=== PATIENT | male | born 1970 | race American Indian/Alaskan Native ===

== ENCOUNTER 2021-06-29 10:53 | Day surgery (SDC) | payer BC ==
[~2021-06-29 10:53] MED LIST: ceFAZolin/Water 2 GM/20 ML 2 GM/20 ML SYRINGE IV NR
[2021-06-29] MEDS ORDERED: LACTATED RINGERS 1,000 ML ONE ×2 (10:57→14:46)
[2021-06-29 11:42] LABS: Hematocrit 39.8 % (30.3-42.9); Hemoglobin 13.3 gm/dl (10.1-14.3); Mean Corpuscular HGB Conc 33 % (30-34); Mean Corpuscular Volume 93 fl (79-97); Platelet Count 205 K/mm3 (140-440); Red Blood Count 4.27 M/mm3 (3.65-5.03); Red Cell Distribution Width 13.7 % (13.2-15.2)
--- NOTE | 2021-06-29 11:52 | Anesthesia Consultation ---
Anesthesia Consult and Med Hx - Airway Anesthetic Teeth Evaluation: Good ROM Head & Neck: Adequate Mental/Hyoid Distance: Adequate Mallampati Class: Class I Intubation Access Assessment: Good - Pulmonary Exam CTA: Yes - Cardiac Exam Cardiac Exam: RRR - Pre-Operative Health Status ASA Pre-Surgery Classification: ASA3 Proposed Anesthetic Plan: General - Pulmonary Hx Smoking: No Hx Asthma: No Hx Respiratory Symptoms: No Hx Sleep Apnea: Yes (No CPAP) - Cardiovascular System Hx Hypertension: Yes Hx Heart Attack/AMI: No - Central Nervous System Hx Neuromuscular Disorder: No Hx Psychiatric Problems: No - Gastrointestinal Hx Gastroesophageal Reflux Disease: No - Endocrine Hx Renal Disease: No Hx Liver Disease: No Hx Non-Insulin Dependent Diabetes: No - Hematic Hx Anemia: No - Other Systems Hx Alcohol Use: Yes (OCCASIONALLY) Hx Substance Use: No Hx Cancer: No Hx Obesity: Yes (BMI 38) - Additional Comments Anesthesia Medical History Comments: BMI 38
--- NOTE | 2021-06-29 11:53 | Anesthesia Day of Surgery ---
Anesthesia Day of Surgery - Day of Surgery Patient Examined: Yes Patient H&P Reviewed: Yes Patient is NPO: Yes
[2021-06-29] MEDS ORDERED: ONDANSETRON 4 MG/2 ML INJ IV PRN (12:07)
[2021-06-29] MEDS ORDERED: HYDROmorphone 1 MG/1 ML INJ IV PRN ×2 (12:07)
[2021-06-29 12:08] LABS: Alanine Aminotransferase 26 units/L (7-56); Albumin 4.2 g/dL (3.9-5); BUN/Creatinine Ratio 11; Blood Urea Nitrogen 9 mg/dL (7-17); Calcium 9.2 mg/dL (8.4-10.2); Hemolysis Index 22
[2021-06-29] MEDS ORDERED: LACTATED RINGERS 1,000 ML IV SCH ×2 (12:15)
[2021-06-29 12:37] VITALS: BP 155/78
[2021-06-29] MEDS ORDERED: ROCURONIUM 50 MG/5 ML INJ IV ONE ×2 (12:54→14:46)
[2021-06-29] MEDS ORDERED: LIDOCAINE MPF (2%) 20 MG/1 ML VIAL 5 ML ONE (12:54)
[2021-06-29] MEDS ORDERED: ONDANSETRON 4 MG/2 ML INJ ONE (12:54)
[2021-06-29] MEDS ORDERED: propofoL 200 MG/20 ML VIAL IV ONE (12:55)
[2021-06-29] MEDS ORDERED: fentaNYL 100 MCG/2 ML INJ ONE (12:55)
[2021-06-29] MEDS ORDERED: MIDAZOLAM 2 MG/2 ML INJ IV NR (13:00)
[2021-06-29] MEDS ORDERED: BUPIVACAINE/PF (0.5%) 5 MG/1 ML 30 ML VIAL INFILTRATI ONE (13:33)
[2021-06-29] MEDS ORDERED: LIDOCAINE 2%/EPINEPHRINE 1:100,000 VIAL (20 ML) INFILTRATI ONE ×2 (13:33→14:36)
[2021-06-29] MEDS ORDERED: WATER FOR IRRIG STERILE 1,500 ML BOTTLE IR ONE (14:36)
[2021-06-29] MEDS ORDERED: SODIUM CHLORIDE 0.9% IRR 1,500 ML BOTTLE IR ONE (14:36)
[2021-06-29] MEDS ORDERED: BUPIVACAINE/PF (0.5%) 5 MG/1 ML 10 ML VIAL INFILTRATI ONE (14:36)
[2021-06-29] MEDS ORDERED: dexAMETHasone 20 MG/5 ML VIAL ONE (14:46)
[2021-06-29] MEDS ORDERED: NEOSTIGMINE 10MG/10 ML INJ MDV ONE (16:46)
[2021-06-29] MEDS ORDERED: GLYCOPYRROLATE 0.4 MG/2 ML INJ ONE (16:46)
--- NOTE | 2021-06-29 16:57 | Short Stay Summary ---
Short Stay Documentation Date of service: 06/29/21 - History Principal diagnosis: Right inguinal hernia H&P: obtained from office Past Medical History: No medical history Past Surgical History: No surgical history Social history: no significant social history - Allergies and Medications Current Medications: Allergies No Known Allergies Allergy (Verified 06/25/21 15:02) Home Medications Medication Instructions Recorded Confirmed Last Taken Type amLODIPine [Norvasc] 10 mg PO DAILY 06/25/21 06/29/21 06/29/21 History hydroCHLOROthiazide 12.5 mg PO DAILY 06/25/21 06/25/21 Unknown History [Hydrochlorothiazide] Active Medications Hydromorphone HCl (Hydromorphone 1 Mg/1 Ml Inj) 0.25 mg IV Q10MIN PRN PRN Reason: Pain, Moderate (4-6) Stop: 06/30/21 12:06 Hydromorphone HCl (Hydromorphone 1 Mg/1 Ml Inj) 0.5 mg IV Q10MIN PRN PRN Reason: Pain , Severe (7-10) Stop: 06/30/21 12:06 Cefazolin Sodium (Ancef/Sterile Water 2 Gm/20 Ml) 2 gm in 20 mls @ 80 mls/hr IV PREOP NR; Protocol Stop: 06/29/21 23:00 Lactated Ringer's (Lactated Ringers) 1,000 mls @ 75 mls/hr IV PREOP SETH Last Admin: 06/29/21 11:30 Dose: 75 mls/hr Lactated Ringer's (Lactated Ringers) 1,000 mls @ 125 mls/hr IV DIRECT SETH Midazolam HCl (Midazolam 2 Mg/2 Ml Inj) 2 mg IV PREOP NR Stop: 06/29/21 23:59 Ondansetron HCl (Ondansetron 4 Mg/2 Ml Inj) 4 mg IV ONCE PRN PRN Reason: Nausea And Vomiting - Physical exam General appearance: no acute distress Integumentary: no rash HEENT: PERRLA Lungs: Clear to auscultation Heart: Regular rate Gastrointestinal: normoactive bowel sounds - Brief post op/procedure progress note Date of procedure: 06/29/21 Pre-op diagnosis: Right inguinal hernia Post-op diagnosis: same Procedure: Robotic repair of right inguinal hernia with mesh Anesthesia: GETA Findings: Right inguinal hernia Surgeon: TRUPTI SCHNEIDER Iron Cutter: ANITRA FLETCHER Estimated blood loss: minimal Pathology: none Condition: stable - Disposition Condition at discharge: Good Disposition: 01 HOME / SELF CARE / HOMELESS Short Stay Discharge Plan Follow up with: SANDRA YANEZ MD [Primary Care Provider] - 7 Days
--- NOTE | 2021-06-29 17:04 | Operative Report ---
Operative Report Operative Report: Date: 06/29/2021 Preop diagnosis: Right inguinal hernia Postop diagnosis: Same Procedure: Robotic right inguinal hernia repair with mesh Surgeon: Dr. Hernandez Migration Agent: Dr. Alvarez Anesthesia: CLAU estimated blood loss: Minimal Specimen: None Findings: This patient presents with right inguinal hernias. He is taken to the OR and under general endotracheal anesthesia timeout is completed consents on the chart. Patient received 2 g of Ancef IV. Lima catheter is in place. The abdomen is shaved and prepped with ChloraPrep. Sterilely draped. A supraumbilical incision is made. Varies needle was placed through this. Abdomen is insufflated with CO2. A 5 mm Visiport is used to gain access at the supraumbilical incision. And the abdomen is inspected. 8 mm port is established in the right and left hypogastric areas. The 5 Mancini port is removed and a 12 mm port is established. The robot is then docked in the usual fashion. Cautery scissors is used in arm 1 and the bipolar grasper in arm two. 30 degree angled scope was used. Peritoneal incision is made in the right lower quadrant. Properitoneal dissection is then performed to expose the pubic tubercle the hernia and cord structures, and the lateral space. A direct inguinal hernia is found. The inguinal hernia sac is completely dissected free of the inguinal canal. Attention was then turned to the left lower quadrant. There is no left inguinal hernia Right large 3D Bard mesh is then placed into the abdomen. The mesh is placed into the properitoneal dissections. Medial and lateral sutures are used with 2- 0 Vicryl to fix the edges of the mesh in place. The peritoneal incision is in reapproximated using 2-0 barbed suture. Sponge and needle counts are noted and are correct. The supraumbilical fascial incision is closed with 2-0 Vicryl sutures. CO2 is allowed to exit the abdomen. All ports were then removed. Skin incisions were closed with 4-0 Vicryl and Dermabond. Patient tolerated procedure well.
[2021-06-29] MEDS ORDERED: HYDROcodone/ACETAMINOPHEN 7.5-325MG TAB PO ONE (17:50)
[2021-06-29] MEDS ORDERED: HYDROcodone/ACETAMINOPHEN 7.5-325MG TAB ONE (17:51)
--- NOTE | 2021-06-29 18:48 | Post Anesthesia Evaluation ---
- Post Anesthesia Evaluation Patient Participated: Yes Airway Patent: Yes Stable Respiratory Function: Yes Nausea/Vomiting: No Temp > 96.8F: Yes Pain Manageable: Yes Adequeate Hydration: Yes Anesthesia Complications: No Block Receding Appropriately: Not Applicable Patient on Ventilator: No
== END 2021-06-29 10:54 | disposition home or self-care (01) ==
LOC: OR 10:53 → EDSEX 10:53 → OR 10:54
PROVIDERS: ATTEND Surgery
DX: K40.90 Unilateral inguinal hernia, without obstruction or gangrene, not specified as recurrent (principal); I10 Essential (primary) hypertension; G47.30 Sleep apnea, unspecified; E66.9 Obesity, unspecified; F41.9 Anxiety disorder, unspecified; Z72.89 Other problems related to lifestyle; Z79.899 Other long term (current) drug therapy; Z98.890 Other specified postprocedural states; Z68.38 Body mass index [BMI] 38.0-38.9, adult
CPT/HCPCS: 36415; 49650; 80053; 85027; C1781; J0690; J1100; J1815; J2405; J2704; J2710; J3010; J3490; J7120; S2900